=== PATIENT | male | born 1950 | race Caucasian/White ===

== ENCOUNTER 2024-09-29 09:45 | Outpatient (REF) | payer SELFPAY ==
--- NOTE | ~2024-09-29 | XR_ITS ---
EXAMINATION: XR PELVIS CLINICAL INFORMATION: Pain in unspecified hip M25.559. COMPARISON: None available. TECHNIQUE: AP view of the pelvis. FINDINGS: The right total hip arthroplasty components are in the usual position and alignment without evidence of loosening or fracture. Normal left hip. XR/XR pelvis 1-2V IMPRESSION: Right total hip arthroplasty without evidence of complication. Electronically signed by: Willian Naidu MD 11/06/2024 08:38 AM [place]
--- OUTSIDE RECORDS SUMMARY | 2024-10-01 14:11 | XMS_ITS | Continuity of Care Document ---
Author Organization [facility] Address [address] [place] [address] Phone Care Team Providers Care Sustainable Development Policy Analyst Name Role Phone Soto Riojas MD Unavailable Unavailabl e Allergies, Adverse Reactions, Alerts Substance Reaction Status Criticality No Known Allergies Active No Inform ation Medications Medication Instructions Dosage Effective Dates (start - stop) Status Comments ASPIRIN (unknown strength) Not Available - Active GABAPENTIN (unknown strength) Not Available - Active Tirosint 13 mcg capsule take 1 capsule by oral route every day 13 MCG - Active simvastatin 40 mg tablet take 1 tablet (40MG) by oral route every day in the evening 40 MG - Active Problems Condition Type Effective Dates (start - stop) Clini sal Status Comments No Known Problems Procedures Procedure Date Pawel HART Pt, Level III Comp Audiometry Threshold Eval Tympanometry Removal Impacted Cerumen Req Instrumenta tion HAILEY Estab Pt, Level III HAILEY, New Pt, Level III Diagnostic Fiberoptic Laryngoscopy Removal Impacted Cerumen Req Instrumenta tion Pawel HART Pt, Level III Diagnostic Fiberoptic Laryngoscopy Pawel HART Pt, Level III Consult, Level III / Office Diagnostic Fiberoptic Laryngoscopy Advance Directives Directive Yes / No Effective Date File Name No Information Encounters Encounter Description Practice Location Reason(s) For Visit Diagnoses Date Provider Providers Copied on Encounter [facility], [address], [place], [place], [id number] , [place] tel: [phone] [facility] No Information Apr-0 4 Shine Valera. [address], [facility] 201, [place], [place], [id number], [place]. tel:[phone] OV, Estab Pt, Level III [facility], [address], [place], [place], [id number] , [place] tel: [phone] [facility] Follow Up of Tinnitus (chief complaint) Pulsatile tinnitus, right ear Jan- 4 Shine Valera. [address], [address], [id number], [place]. tel:[phone] [facility], [address], [place], [place], [id number] , [place] tel: [phone] [facility] Sensorineural hearing loss, bilateral Dec- 4 Constantino Schulz. [address], [facility] [address], [place], [id number], [place]. tel:[phone] Referring Provider: Soto Riojas MD, [address], [address] . tel:[phone] OV, Estab Pt, Level III [facility], [address], [place], [place], [id number] , [place] tel: [phone] [facility] Tinnitus (chief complaint) Pulsatile tinnitus, bilateralImpacte d cerumen, right ear Fe- 4 Shine Valera. [address], [facility] 201, [place], [place], [id number], [place]. tel:[phone] [facility], [address], [place], [place], [address] , [place] tel: [phone] [facility] Obstructive sleep apnea (adult) (pediatric) 7 No Information [facility], [address], [place], [place], [address] , [place] tel: [phone] [facility] Obstructive sleep apnea (adult) (pediatric) 7 No Information OV, New Pt, Level III [facility], [address], [place], [place], [address] , [place] tel: [phone] [facility] Sleep apnea (chief complaint) Deviated nasal septumObstructiv e sleep apnea (adult) (pediatric)Snori ngImpacted cerumen, bilateral 6 No Information Referring Provider: Quan Redd, [address] [place] [address], [address]. tel:[phone] OV, Estab Pt, Level III [facility], [address], [place], [place], [address] , [place] tel: [phone] [facility] Snoring (chief complaint) Deviated Nasal Septum 2 No Information OV, Estab Pt, Level III [facility], [address], [place], [place], [id number] , [place] tel: [phone] [facility] Snoring (chief complaint) No Information 1 No Information Consult, Level III / Office [facility], [address], [place], [place], [address] , [place] tel: [phone] [facility] Snoring (chief complaint) Respiratory Abnorm NecOtosclerosis Nos Sep-0 1 No Information Referring Provider: Quan Redd, [address] [place] [address], [address]. tel:[phone] [facility], [address], [place], [place], [address] , tel: [phone] [facility] Otosclerosis Nos Jun- 5 William Gregory. [address], [address], [place], [place], [address], [place]. tel:[phone] Referring Provider: Narendra Duong, [address] [place] [address] [address], [place], [address]. tel:[phone] [facility], [address], [place], [place], [address] , tel: [phone] [facility] Otosclerosis NosMixed Hearing Loss 5 No Information Referring Provider: Narendra Duong, [address] [place] [address], [place], [address]. tel:[phone] Family History Family Member Type Diagnosis Age At Onset Mother Problem (finding) Alzheimer's Disease Mother Problem (finding) alzheimer's disease Sister Problem (finding) malignant neop lasm of breast in first degree relative Immunizations Vaccine Date Status Comments Pneumococcal vaccine unspecified complete d Note: patient only reported on this date, was given elsewhere ; Source: Source Unspecified Payers Payer name Insurance type Covered constitution party ID Authoriza tion(s) Medicare [facility] [id number] [facility] CI [id number] Social History Type Description Quantity Date Captured Comments Sex Male Smoking Status No Information Chief Complaint And Reason For Visit No Information Reason For Referral Reason For Referral No Information History Of Present Illness Encounter Date Complaint History Of Prese nt Illness Follow Up of Tinnitus The patien t presents with Follow Up of Tinnitus in the right ear that began 1 month ago and has lasted 1 Month. The symptoms are not changed, have been mild and occur constantly. The patient denies difficulty concentrating, dizziness, ear pain, extremity weakness, fullness in ear, headache, hearing loss, insomnia, vertigo, vision changes or volume fluctuation. Additional information: Pt states he has been in the hospital - CT SCAN is normal- had hearing test 01/02/24. Tinnitus The patient pres ents with Tinnitus in both ears that began 5 years ago and has lasted 5 Years. The symptoms are not changed, have been moderate and occur occasionally. The patient denies difficulty concentrating, dizziness, ear pain, extremity weakness, fullness in ear, headache, hearing loss, insomnia, vertigo, vision changes or volume fluctuation. Additional information: pt states has whooshing in the head, and sometimes whooshing turns to like an alarm sound x years all the time. Sleep apnea The symptoms are mild and worsening. These complaints are continuous. Relevant history: a BMI of 29.41. There is no history of atrial fibrillation. There are no associated symptoms. The patient denies headache, heartburn, nasal congestion, weight gain or wheezing. Additional information: worsening snoring, had hip replacement six weeks, ahi was 14.9. Functional Status Date Functional Assessmen t No Information Instructions Date Instruction Additional Infor mation No Information Assessments Type Assessment Date No Information Patient Care Teams Name Effective Dates (start - stop) Status Members No Information
--- OUTSIDE RECORDS SUMMARY | 2024-10-01 14:11 | XMS_ITS ---
Author Name [facility] Organization Unknown Results Test Name/Text Value Interpretation Date Range Source BKR REFLEX URINE CULTURE See Comment Normal [id number] [facility] Bacteria # Ur Auto Rare Normal [id number] - [facility] Hyaline Casts #/area UrnS 3/LPF Normal [id number] 0 - 3 [facility] WBC #/area UrnS Auto 4/HPF Normal [id number] 0 - 5 [facility] RBC #/area UrnS Auto 1/HPF Normal [id number] 0 - 2 [facility] Squamous #/area UrnS Auto 1/HPF Normal [id number] 0 - 5 [facility] Hgb Ur Ql Strip.auto Negative Normal [id number] - [facility] Prot Ur Strip.auto-mCnc 1+ Abnormal [id number] - [facility] Color Ur Auto Yellow Normal [id number] - [facility] Glucose Ur Strip.auto-mCnc Negative Normal [id number] - [facility] Bilirub Ur Ql Strip.auto Negative Normal [id number] - [facility] Nitrite Ur Ql Strip.auto Negative Normal [id number] - [facility] Ketones Ur Strip.auto-mCnc Negative Normal [id number] - [facility] Clarity Ur Refract.auto Clear Normal [id number] - [facility] WBC # Ur Strip Negative Normal [id number] - [facility] Urobilinogen Ur Strip-mCnc 2mg/dL Normal [id number] - [facility] pH Ur Strip.auto 6 Normal [id number] 5.5 - 7.5 [facility] Sp Gr Ur Refract.auto 1.026 Normal [id number] 1.005 - 1.03 [facility] Anion Gap3 SerPl-sCnc 4 Below low normal [id number] 5 - 18 [facility] Osmolality SerPl Calc 279mOsm/kg Normal [id number] 275 - 295 [facility] Creat SerPl-mCnc 1.02mg/dL Normal 0.5 - 1.3 [facility] Albumin/Glob SerPl 1.3 Normal [facility] Albumin SerPl BCG-mCnc 3.8g/dL Normal 3.4 - 5 [facility] ALT SerPl w/o P-5'-P-cCnc 35U/L Normal 12 - 78 [facility] Potassium SerPl-sCnc 4.4mmol/L Normal 3.5 - 5.1 [facility] Bilirub SerPl-mCnc 0.5mg/dL Normal 0 - 1 [facility] Calcium SerPl-mCnc 9mg/dL Normal 8.4 - 10 .3 [facility] AST/ALT SerPl-cRto 0.4 Normal - [facility] BUN SerPl-mCnc 17mg/dL Normal 8 - 25 [facility] ALP SerPl-cCnc 62U/L Normal 20 - 135 [facility] HCO3 SerPl-sCnc 28mmol/L Normal 21 - 32 [facility] Chloride SerPl-sCnc 107mmol/L Normal 95 - 11 5 [facility] BUN/Creat SerPl 16.7 Normal 8 - 25 [facility] AST SerPl w P-5'-P-cCnc 15U/L Normal 5 - 37 [facility] GFR/BSA.pred SerPlBld IUZ-ECP-HxBNno 60mL/min/1.73m2 Normal - [facility] Globulin Plas-mCnc 3g/dL Normal [id number] [facility] Prot SerPl-mCnc 6.8g/dL Normal 6.4 - 8.2 [facility] Sodium SerPl-sCnc 139mmol/L Normal 136 - 145 [facility] Glucose SerPl-mCnc 92mg/dL Normal 70 - 100 [facility] Lipase SerPl-cCnc 18U/L Normal [id number] 13 - 75 [facility] Monocytes # Bld Auto 0.41p4965/uL Normal [id number] 0 - 1 [facility] nRBC/100 WBC Bld Auto-Rto 0% Normal [id number] 0 - 1 [facility] Eosinophil # Bld Auto 0.47z4912/uL Normal [id number] 0 - 1 [facility] nRBC # Bld Auto 1z7390/uL Normal [id number] 0 - 1 [facility] Neutrophils # Bld Auto 7.46m7766/uL Normal [id number] 2 - 7.6 [facility] MCHC RBC Auto-mCnc 33.6g/dL Normal [id number] 31 - 36 [facility] Monocytes/leuk NFr Bld Auto 7.8% Normal [id number] 4 - 12 [facility] Basophils # Bld Auto 0.58o2507/uL Normal [id number] 0 - 1 [facility] WBC # Bld Auto 12.4d7764/uL Above high normal [id number] 4 - 11 [facility] Hct VFr Bld Auto 41.4% Normal [id number] 38.5 - 50 [facility] RDW RBC Auto-Rto 13.1% Normal [id number] 11 - 15 [facility] PMV Bld Auto 8.7fL Normal [id number] 8 - 12 [facility] Eosinophil/leuk NFr Bld Auto 1.8% Normal [id number] 0 - 5 [facility] MCH RBC Qn Auto 30.1pg Normal [id number] 27 - 33 [facility] Basophils/leuk NFr Bld Auto 0.6% Normal [id number] 0 - 1.4 [facility] Lymphocytes # Bld Auto 3.35b7725/uL Above high normal [id number] 0.6 - 3.7 [facility] RBC # Bld Auto 4.62M/uL Normal [id number] 4 - 6 [facility] Neutrophils/leuk NFr Bld Auto 58% Normal [id number] 39 - 72 [facility] Imm Granulocytes # Bld Auto 0.85p9956/uL Normal [id number] 0 - 0.3 [facility] Platelet # Bld Auto 191j4563/uL Normal [id number] 150 - 420 [facility] MCV RBC Auto 89.6fL Normal [id number] 80 - 100 [facility] Lymphocytes/leuk NFr Bld Auto 31.5% Normal [id number] 17 - 50 [facility] Imm Granulocytes/leuk NFr Bld Auto 0.3% Normal [id number] 0 - 1 [facility] Hgb Bld-mCnc 13.9g/dL Normal 13.2 - 17.1 [facility]
== END 2024-09-29 09:46 | disposition home or self-care (01) ==
LOC: HO.HOSX 09:45
PROVIDERS: Visit Provider Orthopaedic Surgery
DX: M25.559 Pain in unspecified hip (principal); M54.50 Low back pain, unspecified; Z96.641 Presence of right artificial hip joint
CPT/HCPCS: 72170; 99202

== ENCOUNTER 2024-09-29 10:14 | Outpatient (AMB) | payer MEDICARE, SELFPAY ==
--- NOTE | 2024-09-29 10:16 | A.OFFVIS_ITS ---
Vital Signs 09/29/24 10:27 Height 5 ft 10 in Weight 205 lb BMI 29.4 Intake Visit Reasons: New Pt - Right Hip Pain Intake Note: Anatoly is a 74 year old male who presents today as a new patient with complaints of Right Hip Pain. Patient reports that the right hip has been painful for about 1 year now. Hx of Right Hip Replacement about 8 years ago in [place]. Denies injury, he may overdo it. Pain is felt all the time, he takes Advil which is not helpful. He occasionally takes Oxycodone that was prescribed to his for a past surgery. Allergies No Known Allergies Allergy (Verified 09/29/24 10:28) HPI HPI New Pt - Right Hip Pain: Details: Anatoly is 10 years status post right hip replacement with a few months of right- sided hip and leg pain and back pain that has worsened to the point that he can not sleep. He is having a difficult time finding a comfortable position. He describes pain extending from of the lumbar spine down across the greater trochanter into the knee. He denies numbness and tingling although he does have bilateral lower extremity neuropathy. [facility] Surgical History (Updated 09/29/24 @ 10:31 by Jessie Oleary CMA) S/P TURP (status post transurethral resection of prostate) History of right hip replacement Social History (Updated 09/29/24 @ 10:31 by Jessie Oleary CMA) Current occupational status: retired Physical Exam Vital Signs: BMI result Body Mass Index 29.4 Extrem Other: No pain with hip range of motion Tenderness to palpation over the greater trochanter and into the abductor tendons although this is mild. Results Reviewed Results Reviewed: I personally reviewed relevant radiographs. Right FOZIA in expected post operative position with no hardware complications or evidence of loosening Assessment & Plan Assessment & Plan (1) Low back pain potentially associated with spinal stenosis: Code(s): M54.50 - Low back pain, unspecified Category: Medical Plan: Anatoly is having a acute flare of spinal stenosis and extremely uncomfortable. There is no evidence of intra-articular hip pathology and my suspicion for for primary abductor problem is low as his pain involves the back and extends into the knee. I have recommended a injection was spine. In the meantime we discussed some treatment options. I gave him some pain pills for a few days as he is extremely uncomfortable and I started him on a methylprednisolone Dosepak. I ordered a injection of the spine. He should bring his MRI with him and if the steroid Dosepak alleviates his pain he should cancel the appointment. I also described the risks of methylprednisolone with respect to his stomach and his occasional use of NSAIDs. I would discontinue the NSAIDs while he is on the prednisolone. Orders: Orders XR pelvis 1-2V Today M25.559 - Pain in unspecified hip Referrals Pain Management Referral M54.50 - Low back pain, unspecified Medications: New methylprednisolone (Medrol (Kike)) PO PER PKG DIR for 6 days 21 ea 0RF oxycodone Partial Fill upon patient request. 5 mg PO Q8H PRN 10 tabs 0RF pain Coding Level of Care Code New Pt Level 4 (13274) Diagnoses Low back pain potentially associated with spinal stenosis M54.50
[2024-09-29 10:27] VITALS: BMI 29.4
--- OUTSIDE RECORDS SUMMARY | 2024-10-01 14:25 | XMS_ITS | Continuity of Care Document ---
Author Organization [facility] Address [address] [place] [address] Phone Care Team Providers Care Manager Rehab Name Role Phone Soto Riojas MD Unavailable [...] [facility] [address], [place], [place], [id number] , [place] tel: [phone] [facility] No Information Apr-0 4 Shine Valera. [address], [facility] 201, [place], [place], [id number], [place]. tel:[phone] OV, Estab Pt, Level III [facility], [address], [place], [place], [address] , [place] tel: [phone] [facility] Follow Up of Tinnitus (chief complaint) Pulsatile tinnitus, right ear Jan- 4 Shine Valera. [address], [address], [id number], [place]. tel:[phone] [facility], [address], [place], [place], [address] , [place] tel: [phone] [facility] Sensorineural hearing loss, bilateral Dec- 4 Constantino Schulz. [address], [facility] [address], [place], [address], [place]. tel:[phone] Referring Provider: Soto Riojas MD, [address], [address] . tel:[phone] OV, Estab Pt, Level III [facility], [address], [place], [place], [address] , [place] tel: [phone] [facility] Tinnitus (chief complaint) Pulsatile tinnitus, bilateralImpacte d cerumen, right ear Fe- 4 Shine Valera. [address], [facility] 201, [place], [place], [address], [place]. tel:[phone] [facility], [address], [place], [place], [address] , [place] tel: [phone] [facility] Obstructive sleep apnea (adult) (pediatric) 7 No Information [facility], [address], [place], [place], [address] , [place] tel: [phone] [facility] Obstructive sleep apnea (adult) (pediatric) 7 No Information OV, New Pt, Level III [facility], [address], [place], [place], [address] , [place] tel: [phone] [facility] Sleep apnea (chief complaint) Deviated nasal septumObstructiv e sleep apnea (adult) (pediatric)Snori ngImpacted cerumen, bilateral 6 No Information Referring Provider: Quan Redd, [address] [place] [address], [address]. tel:[phone] OV, Estab Pt, Level III [facility], [address], [place], [place], [address] , [place] tel: [phone] [facility] Snoring (chief complaint) Deviated Nasal Septum 2 No Information OV, Estab Pt, Level III [facility], [address], [place], [place], [address] , [place] tel: [phone] [facility] Snoring (chief complaint) No Information 1 No Information Consult, Level III / Office [facility], [address], [place], [place], [address] , [place] tel: [phone] [facility] Snoring (chief complaint) Respiratory Abnorm NecOtosclerosis Nos Sep-0 1 No Information Referring Provider: Quan Redd, [address] [place] [address], [address]. tel:[phone] [facility], [address], [place], [place], [address] , tel: [phone] [facility] Otosclerosis Nos Jun- 5 William Gregory. [address], [address], [place], [place], [id number], [place]. tel:[phone] Referring Provider: Narendra Duong, [address] [place] [address], [place], [address]. tel:[phone] [facility], [address], [place], [place], [address] , tel: [phone] [facility] Otosclerosis NosMixed Hearing Loss 5 No Information Referring Provider: Narendra Duong, [address] [place] [address], [place], [address]. tel:[phone] Family History Family Member Type Diagnosis Age [...] Covered constitution party ID Authoriza tion(s) Medicare [facility] [id number] [facility] CI [id number] Social History Type Description Quantity Date Captured [...]
== END 2024-09-29 11:26 | disposition home or self-care (01) ==
PROVIDERS: Visit Provider Orthopaedic Surgery
DX: M54.50 Low back pain, unspecified (principal)
CPT/HCPCS: 99204

== ENCOUNTER 2024-10-24 10:24 | Outpatient (AMB) | payer MEDICARE, SELFPAY ==
--- NOTE | 2024-10-24 10:35 | A.OFFVIS_ITS ---
Vital Signs 10/24/24 10:37 Height 5 ft 10 in Weight 205 lb BMI 29.4 BP 165/72 H Blood Pressure Location Lt brachial Position Sitting Respiration 15 Pulse 54 Pulse Source Pulse Oximeter Pulse Oximetry (%) 98 Oxygen Delivery Method Room Air Intake Visit Reasons: Low Back Pain, Unspecified: (R) Lumbar Injections Allergies No Known Allergies Allergy (Verified 10/24/24 10:48) Medication List - Last Reconciled 10/24/24 by Fiona Velazquez LPN allopurinol 100 mg PO DAILY gabapentin 300 mg PO DAILY levothyroxine 75 mcg PO DAILY nebivolol 10 mg PO DAILY rosuvastatin 40 mg PO DAILY HPI HPI Low Back Pain, Unspecified: (R) Lumbar Injections: Details: 74-year-old male 10 years status post right hip replacement with a few months of right-sided hip and leg pain and back pain that has been progressively worsening. He is having a difficult time finding a comfortable position. He describes the pain mostly in his right greater trochanteric region surrounding the scar and in the right hip. Pain is worse at night. Rated 8/10 in intensity. During the day tends to be about 5/10 in intensity. He is unable to sleep normally or do his daily activities. He also recently experienced a bout of shingles with a rash in the same distribution so he wonders how much of his pain may be related to post herpetic neuralgia. But he is quite clear that symptoms in that region to predate the eruption of the rash by several months. He has been undergoing physical therapy as well for this. He is currently taking katelin apentin 1800 mg per day. He denies numbness and tingling although he does have bilateral lower extremity neuropathy. [facility] Surgical History (Updated 09/29/24 @ 10:31 by Jessie Oleary CMA) S/P TURP (status post transurethral resection of prostate) History of right hip replacement Social History (Updated 09/29/24 @ 10:31 by Jessie Oleary CMA) Current occupational status: retired Physical Exam Vital Signs: Last Vital Signs Pulse 54 10/24/24 10:37 Resp 15 10/24/24 10:37 BP 165/72 H 10/24/24 10:37 Pulse Ox 98 10/24/24 10:37 Oxygen Delivery Method Room Air 10/24/24 10:37 BMI result Body Mass Index 29.4 Results Reviewed Results Reviewed: MRI of the lumbar spine showed moderate to severe canal stenosis at L4-5 with grade 1 anterolisthesis and encroachment of the right subarticular recess leading to moderate right foraminal stenosis. Assessment & Plan Assessment & Plan (1) Greater trochanteric pain syndrome: Code(s): M25.559 - Pain in unspecified hip Category: Medical Plan 74-year-old male presenting with 10 month history of right hip and lateral thigh pain. Pertinent history is notable for prior right-sided hip replacement with an associated scar overlying the right greater trochanter, lumbar spinal stenosis with moderate to severe stenosis of the right L4-5 level, recent shingles with eruption and associated herpetic neuralgia also in the same vicinity. We discussed diagnostic injection as a 1st step since it would be preferable to delay a corticosteroid injection in the same vicinity as a recent shingles infection. If the diagnostic injection is helpful, we can consider corticosteroid injections to the right greater trochanter region in the future. Patient is in agreement with the plan. He also requested a temporary bridging script for his oxycodone since he has not heard back from his primary care after placing a request with that office a few days ago. I provided him with a 1 time short script until he is able to reconnect with his primary care provider. Medications: New oxycodone Partial Fill upon patient request. 5 mg PO BID PRN 14 tabs 0RF pain Coding Level of Care Code New Pt Level 4 (11925) Diagnoses Greater trochanteric pain syndrome M25.559
[2024-10-24 10:37] VITALS: BP 165/72; PULSE 54; RESP 15; O2SAT 98; BMI 29.4
== END 2024-10-24 11:05 | disposition home or self-care (01) ==
PROVIDERS: Referring Provider Orthopaedic Surgery; Visit Provider Internal Medicine
DX: M25.559 Pain in unspecified hip (principal)
CPT/HCPCS: 99204

== ENCOUNTER → 2024-10-24 10:24 | Outpatient (BNVA) | payer MEDICARE, SELFPAY | PROVIDERS: Referring Provider Orthopaedic Surgery; Visit Provider Internal Medicine | DX: M25.551 Pain in right hip (principal) | CPT/HCPCS: 99202 ==

== ENCOUNTER 2024-11-12 10:16 | Outpatient (AMB) | payer MEDICARE, SELFPAY ==
--- NOTE | 2024-11-12 10:17 | A.OFFVIS_ITS ---
Vital Signs 11/12/24 10:20 Height 5 ft 10 in Weight 203 lb BMI 29.1 BP 141/65 H Blood Pressure Location Lt brachial Position Sitting Respiration 16 Pulse 56 Pulse Source Pulse Oximeter Pulse Oximetry (%) 98 Oxygen Delivery Method Room Air Intake Visit Reasons: Right Hip Diagnostic Injection Allergies No Known Allergies Allergy (Verified 11/21/24 10:12) Medication List - Last Reconciled 11/12/24 by Fiona Velazquez LPN allopurinol 100 mg PO DAILY gabapentin 300 mg PO DAILY levothyroxine 75 mcg PO DAILY nebivolol 10 mg PO DAILY rosuvastatin 40 mg PO DAILY HPI HPI Right Hip Diagnostic Injection: Details: History of Present Illness The patient is a 74-year-old male presenting with right hip pain. The pain has persisted for the past year and was exacerbated following a diagnosis of shingles about seven weeks ago. During his shingles outbreak, he developed a rash and has since experienced numbness in his leg, suspected to involve the lumbar plexus. The patient has an artificial hip and has reported a change in the character of the pain over time. The pain relief is partially achieved thr ough localized pressure and massage therapy. He has been trying to manage the pain with up to six 500 mg Tylenol tablets per day. Notably, the pain intensified post-shingles. The massage therapist noted that the pain seems more muscular compared to before. Onset of these symptoms coincided with his return to playing tennis, though he reports limitations including inability to run and dizziness. Previous medications included oxycodone, which he has since discontinued. During this visit, diagnostic efforts revealed calcification in the distal right gluteus medius tendon. Pain Description - Pain Location: Right hip, specific focus on distal gluteus medius region - Pain Quality: Dull achy pain with some numbness - Aggravating Factors: Physical activity such as playing tennis, running - Relieving Factors: Localized pressure and massage therapy - Functional Impact: Limits ability to play tennis and causes dizziness Physical Exam - Musculoskeletal- Ultrasound examination revealed calcification in the distal right gluteus medius tendon. Results - Diagnostic Imaging: Ultrasound examination confirmed calcification of the distal right gluteus medius tendon. Pain Management - Affect: Pain impacts functional activities like playing tennis; patient mentioned occasional dizziness. - Analgesia: Previously used oxycodone, currently using Tylenol up to six tablets daily. - Adverse Effects: None reported from current pain regimen. - Activities of Daily Living: Unable to run; dizziness while playing tennis affects activities. - Aberrant Drug Related Behaviors: None reported; patient previously used prescribed oxycodone. [facility] Surgical History (Updated 09/29/24 @ 10:31 by Jessie Oleary CMA) S/P TURP (status post transurethral resection of prostate) History of right hip replacement Social History (Updated 09/29/24 @ 10:31 by Jessie Oleary CMA) Current occupational status: retired Physical Exam Vital Signs: Last Vital Signs Pulse 56 11/12/24 10:20 Resp 16 11/12/24 10:20 BP 141/65 H 11/12/24 10:20 Pulse Ox 98 11/12/24 10:20 Oxygen Delivery Method Room Air 11/12/24 10:20 BMI result Body Mass Index 29.1 Office Procedures AMB Joint Injection/Aspiration Joint Injection/Aspiration Details: Right Gluteus medius tendon USG injection After informed written consent was obtained, the patient was placed in the lateral position. The skin was prepped with Chloroprep, and draped in a sterile fashion. With the use of US the greater trochanter and GM tendon was identified. A 21-gauge 80 mm needle was then advanced toward the calcified tendon. Once in position, and after negative aspiration, 0.5% ropivcaine (8 mL total). There was no evidence of paresthesias throughout needle placement. The stylet was replaced and then the needle was withdrawn. The patient tolerated the procedure well and there was no evidence of procedural complications. The patient was observed in the procedure room for 20 minutes, vitals were stable, and discharged in stable condition. Coding Details: US image saved to patients record Additional procedure code (CPT) needed Assessment & Plan Assessment & Plan (1) Greater trochanteric pain syndrome: Code(s): M25.559 - Pain in unspecified hip Category: Medical Plan Plan - Assess response to today's ultrasound-guided injection in the right gluteus medius tendon with ropivacaine. - Consider PRP injection for calcification at the right gluteus medius tendon if positive diagnostic response observed. - Continue to monitor postherpetic neuralgia symptoms and evaluate progression. - Advise against use of NSAIDs for two weeks pre- and post-injection. - Providing oxycodone only if required while managing with Tylenol for pain control. Patient was informed and verbally consented to the use of an ambient scribe for clinic note documentation during this visit. Discussion Notes I discussed the patient's symptoms of right hip pain and numbness and attributed them to right gluteus medius tendinopathy with calcification and postherpetic neuralgia. We discussed the procedure performed today, which was an ultrasound- guided injection of ropivacaine into the distal gluteus medius tendon, to assess whether this approach provides diagnostic relief. If successful, a PRP injection might follow, though it is not covered by insurance. I explained PRP involves using the patient's platelets to aid healing. The patient showed interest in such options despite potential costs. NSAIDs need to be ceased two weeks before and after injections to ensure optimal outcomes. I advised on monitoring the effectiveness of today's injection and to report through the patient portal. Patient Instructions - Avoid taking NSAIDs for the next two weeks. - Continue current Tylenol regimen for pain management. - Monitor for any changes or relief in pain and report back through the patient portal. - Consider PRP injection in the future if positive effects noticed from today's intervention. - Maintain regular multivitamin use to support platelet quality. - Follow up if any new or worsening symptoms occur. Coding Level of Care Code Est Pt Level 3 (48433) Diagnoses Greater trochanteric pain syndrome M25.559
[2024-11-12 10:20] VITALS: BP 141/65; PULSE 56; RESP 16; O2SAT 98; BMI 29.1
== END 2024-11-12 10:57 | disposition home or self-care (01) ==
PROVIDERS: PCP Physician Assistant Medical; Visit Provider Internal Medicine
DX: M25.551 Pain in right hip (principal)
CPT/HCPCS: 20610; 99213

== ENCOUNTER → 2024-11-12 10:16 | Outpatient (BNVA) | payer MEDICARE, SELFPAY | PROVIDERS: PCP Physician Assistant Medical; Visit Provider Internal Medicine | DX: M25.551 Pain in right hip (principal) | CPT/HCPCS: 20610; 99212 ==

== ENCOUNTER 2024-11-21 10:09 | Outpatient (AMB) | payer MEDICARE, SELFPAY ==
--- NOTE | 2024-11-21 10:10 | MHC.OFFVIS ---
Vital Signs 11/21/24 10:11 Height 5 ft 10 in Weight 203 lb BMI 29.1 BP 94/54 L Blood Pressure Location Lt brachial Position Sitting Respiration 16 Pulse 74 Pulse Source Pulse Oximeter Pulse Oximetry (%) 97 Oxygen Delivery Method Room Air Intake Visit Reasons: Follow Up After Inj. Fiber Optics Supervisor Required: No Dental Laboratory Supervisor: Dental Laboratory Supervisor Present Accompanied by: Van Maria Allergies No Known Allergies Allergy (Verified 11/21/24 10:12) Medication List - Last Reconciled 11/21/24 by Fiona Velazquez LPN allopurinol 100 mg PO DAILY gabapentin 300 mg PO DAILY levothyroxine 75 mcg PO DAILY nebivolol 10 mg PO DAILY rosuvastatin 40 mg PO DAILY HPI HPI Follow Up After Inj.: Details: History of Present Illness The patient is a 74 year old male presenting with gluteus medius tendon pain. He initially had a diagnostic injection for this condition but unfortunately did not experience relief. The patient is being seen today for a repeat injection at a different site in hopes of achieving pain relief. The pain has persisted despite prior intervention, prompting the need for reassessment and further intervention. Pain Description - Pain location: Right gluteus medius tendon - Onset: Persistent since previous intervention - Relief: No relief from the initial injection - Plan: Repeat injection at a more proximal site as detailed in the visit plan Physical Exam Results Pain Management - Analgesia: No relief from the first injection; repeat injection planned today [facility] Surgical History (Updated 09/29/24 @ 10:31 by Jessie Oleary CMA) S/P TURP (status post transurethral resection of prostate) History of right hip replacement Social History (Updated 09/29/24 @ 10:31 by Jessie Oleary CMA) Current occupational status: retired Physical Exam Vital Signs: Last Vital Signs Pulse 74 11/21/24 10:11 Resp 16 11/21/24 10:11 BP 94/54 L 11/21/24 10:11 Pulse Ox 97 11/21/24 10:11 Oxygen Delivery Method Room Air 11/21/24 10:11 BMI result Body Mass Index 29.1 Office Procedures AMB Joint Injection/Aspiration Joint Injection/Aspiration Details: Right Gluteus medius tendon USG injection After informed written consent was obtained, the patient was placed in the supine position. The skin was prepped with Chloroprep, and draped in a sterile fashion. With the use of US the greater trochanter and GM tendon was identified. A 21-gauge 80 mm needle was then advanced toward the proximal portion of the tendon. Once in position, and after negative aspiration, 0.5% ropivcaine (8 mL total). There was no evidence of paresthesias throughout needle placement. The stylet was replaced and then the needle was withdrawn. The patient tolerated the procedure well and there was no evidence of procedural complications. The patient was observed in the procedure room for 20 minutes, vitals were stable, and discharged in stable condition. Coding Additional procedure code (CPT) needed Assessment & Plan Assessment & Plan (1) Greater trochanteric pain syndrome: Code(s): M25.559 - Pain in unspecified hip Category: Medical Plan Plan - Administered a repeat right gluteus medius tendon injection at a more proximal site. - Monitor the patient's response to today's intervention. Patient was informed and verbally consented to the use of an ambient scribe for clinic note documentation during this visit. Discussion Notes I discussed with the patient the lack of relief from the previous gluteus medius tendon injection and the plan to administer a repeat injection at a different, more proximal site. I emphasized the importance of evaluating the type of response that is obtained from today's intervention. The patient was informed that further care would be directed based on the outcome of this procedure. Patient Instructions - Monitor the response to today's injection. - Report any immediate adverse effects after the injection. - Follow up as directed to discuss ongoing management based on the response to treatment. - Seek medical attention sooner if severe pain or unusual symptoms occur. Coding Level of Care Code Est Pt Level 3 (33369) Diagnoses Greater trochanteric pain syndrome M25.559
[2024-11-21 10:11] VITALS: BP 94/54; PULSE 74; RESP 16; O2SAT 97; BMI 29.1
--- OUTSIDE RECORDS SUMMARY | 2024-11-21 10:49 | XMS_ITS | Data Portability ---
Author Organization [facility] Address [address] [place] [id number] Assessment Encounter Date Assessment Date Assessment LastModified by Organization Details LastModified Time 08/28/2024 08/28/2024 worsening abdominal pain urine dip clear + tenderness to RLQ advised to go to ER for rule out appendicitis patient agreed with plan Patient was given the opportunity to ask questions. All questions answered and patient indicated understanding of all discussed. [email or web address] Not available 08/28/2024 16:31:31 Plan of Treatment Reminders Order Date Submit Date Provider Last Modified By Organization Details Last Modified Time Details Appointments None record ed. Lab None record ed. Referral None record ed. Procedures None record ed. Surgeries None record ed. Imaging None record ed. Medication Orders None record ed. Patient TargetsNo targets recorded. Patient Instructions Encounter Date Encounter Id Patient Instructions Last Modified By Organization Details Last Modified Time 08/28/2024 [id number] Worsening lower abdominal pain + tenderness to right lower abdomen 6/10 constant pain to RLQ and back urine test normal today advise to go to Emergency Room for imaging CT scan and blood work ruleout appendicitis [email or web address] Not available 08/28/2024 16:24:21 Reason for Referral None Reported. Medical Equipment None Reported. Allergies No known drug allergies Medications Name Sig Start Date Stop Date Status Note LastModified by Organization Details LastModified Time Synthroid active Not Available Not Lindy ilable Not Available allopurinol active Not Available Not A vailable Not Available gabapentin active Not Available Not Av ailable Not Available ezetimibe active Not Available Not Lindy ilable Not Available rosuvastatin active Not Available Not Available Not Available nebivolol active Not Available Not Lindy ilable Not Available Vitals Date Recorded Respiratory rate Provider Name a nd Address Organization Details Last Updated DateTime 08/28/2024 16 /min Erik Au [facility] 08/28/2024 16:04:19 Date Recorded Heart rate Provider Name an d Address Organization Details Last Updated DateTime 08/28/2024 60 /min [facility] 16:04:29 Date Recorded Oxygen saturation Oxygen saturation in Arterial blood by Pulse oximetry Provider Name and Address Organization Details Last Updated DateTime 08/28/2024 97 % 97 % Erik galeano [facility] 08/28/2024 16:04:27 Date Recorded Systolic blood pressure Diastolic blood pressure Provider Name and Address Organization Details Last Updated DateTime 08/28/2024 122 mm[Hg] 72 mm[Hg] Erik galeano [facility] 08/28/2024 16:05:30 Social History None recorded. Functional Status None recorded. Mental Status None recorded. Family History Nothing Reported. Medical History No medical history recorded. Past Encounters Encounter ID Performer Location Encounter Start Date Encounter Closed Date Diagnosis/Indication Diagnosis SNOMED-CT Code Diagnosis ICD10 Code Diagnosis Note [id number] [facility] [address] [id number] 08/28/2024 15:54:10 08/28/2024 16:32:20 Right lower quadrant pain 983269501 R10.31 Health Concerns Section Related Observation LastModified by Organization Detai ls LastModified Time None Recorded Concern Status LastModified by Organization Details LastModified Time None Recorded Advance Directives Directive None Recorded Payers Encounter Date Sequence Insurance Name Policy Number Policy [place] Covered Member ID [place] Member ID Guarantor Name 08/28/2024 1 MEDICARE-[facility] (MEDICARE) Colt Ritchie [id number] Colt Ritchie 08/28/2024 2 [facility] (MEDICARE SUPPLEMENT) Colt Ritchie [id number] Colt Ritchie Notes Date Note Type Note Provider Name and Address Organization Details Recorded Time 08/28/2024 text/html 74 year old male here with worsening back pain and abdominal pain that started a week agohe had it for three days that went away on its own but he was out for 3 days.no feverfeels upset stomachnormal bm dailyno diarrheaunsure if eating made it worse but believes it may haveno vomitingpain is constant 03/31 Right abdomen, feels constant and sharp worse when he walks Celia Camarillo, DO [address] [facility],[address], [place], [address], [facility] 08/28/2024 16:32:12
--- OUTSIDE RECORDS SUMMARY | 2024-11-21 10:49 | XMS_ITS | Clinical Summary ---
Author Organization [address] Address [address] [place] [address] Phone Care Team Providers Care Worm Sorter Name Role Phone Jeannette Weinstein MD Primary Care Provider Allergies No known active allergies Medications No known medications Encounters Date Type Department Care Team Description 08/28/2024 4:52 PM EST - 08/28/2024 8:52 PM EST Emergency [facility] Emergency Dept [address] [place] [address] Soto Noe MD Acute right-sided low back pain without sciatica (Primary Dx) Discharge Disposition: Home or Self Care from Last 3 Months Social History Tobacco Use Types Packs/Day Years Used Date Smoking Tobacco: Unknown Tobacco Cessation:Counseling Given: Not Answered Interpersonal Safety Answer Date Record ed Is there anyone in your life that is hurting or threatening you in anyway? no 08/28/2024 Physical Indicators of Abuse No evidence of phys ical abuse 08/28/2024 Sex and Gender Information Value Date Recorded Sex Assigned at Not on file Legal Sex Male 4:42 PM EST Gender Identity Not on file Sexual Orientation Not on file Last Filed Vital Signs Vital Sign Reading Time Taken Comments Blood Pressure 128/70 08/28/2024 7:40 PM EST Pulse 51 08/28/2024 7:40 PM EST Temperature 36.8 ??C (98.2 ??F) 08/28/2024 7:40 PM ES T Respiratory Rate 20 08/28/2024 7:40 PM EST Oxygen Saturation 98% 08/28/2024 7:40 PM EST Inhaled Oxygen Concentration - - Weight 94.4 kg (208 lb 1.8 oz) 08/28/2024 4:51 P M EST Height - - Body Mass Index - - Plan of Treatment Health Maintenance Due Date Last Done Comments HIV screening 01/24/1964 Hepatitis C screening 1969 Tetanus adult (Td q 10,TDAP once) 1971 Lipid disorder screening 1991 Colon cancer screening, Colonoscopy 01/24/1996 Shingles vaccine (Shingrix) (1 of 2 - Shingrix (RZV) 2 Dose Standard Series) 2001 Influenza vaccine 05/22/2024 08/07/2023, 08/10/2022, 08/02/2021 Covid-19 vaccine series ( season) 2024 06/28/2022, 12/23/2020 RSV Discussion (1 - 1-dose 7 5+ series) 2026 Diabetes screening 08/28/2027 08/28/2024 Pneumo Vaccine 65+ Completed 04/16/2019, 03/13/2017 Meningococcal Vaccine Aged Out No rodrigo kyler eligible based on patient's age to complete this topic Procedures Procedure Name Priority Date/Time Associated Diagnosis Comments CT ABDOMEN PELVIS WO IV CONTRAST Routine 08/28/2024 6:54 PM EST URINE MICROSCOPIC ( GH LMW YH) STAT 08/28/2024 6:10 PM EST URINALYSIS WITH CULTURE REFLEX ( LMW YH) STAT 08/28/2024 6:10 PM EST UA REFLEX CULTURE STAT 08/28/2024 6:1 0 PM EST URINALYSIS WITH CULTURE REFLEX STAT 08/28/2024 6:10 PM EST EKG STAT 08/28/2024 5:16 PM EST COMPREHENSIVE METABOLIC PANEL STAT 08/28/2024 5:06 PM EST CBC AND DIFFERENTIAL STAT 08/28/2024 5:06 PM EST COMPREHENSIVE METABOLIC PANEL STAT 08/28/2024 5:06 PM EST CBC WITH AUTO DIFFERENTIAL STAT 08/28/2024 5:06 PM EST LIPASE STAT 08/28/2024 5:06 PM EST CARDIAC EKG RESULT SCAN 08/28/2024 12:00 AM EST from Last 3 Months Results * CT Abdomen Pelvis wo IV Contrast (08/28/2024 6:54 PM EST) Anatomical Region Laterality Modality Abdomen, Pelvis, Ortho Pelvi s, Abdomen and Pelvis, RCC Abdomen/Pelvis Computed Tomography 08/28/2024 7:30 PM EST Impressions 08/28/2024 7:45 PM EST 1. No urinary calculus or hydronephrosis is demonstrated. 2. There is no CT evidence of appendicitis. 3. Coronary arterial calcification is demonstrated, fatty replacement of the liver and pancreas are seen, and the prostate gland is enlarged. This CT scan was performed utilizing techniques to reduce radiation dose including Automated Exposure Control, mA / kV adjustment for patient size, and / or iterative reconstruction. Reported and signed by: ??Eduardo Camilo MD Narrative 08/28/2024 7:45 PM EST History: 74-year-old male with right flank and lower quadrant pain. CT abdomen noncontrast 08/28/2024: No previous study is available for comparison. The lung bases demonstrate no nodule or consolidation. No pleural or pericardial effusion is seen. There is evidence of linear scarring at the lateral aspect of the left lung base. Coronary arterial calcification is demonstrated. A small hiatal hernia is seen. No urinary calculus or hydronephrosis is demonstrated. Findings are consistent with diffuse fatty hepatic infiltration. No intrahepatic mass or biliary ductal dilatation is seen. The gallbladder and spleen are unremarkable in appearance. Diffuse fatty atrophic changes of the pancreas are demonstrated. The abdominal aorta is normal in caliber. No retroperitoneal adenopathy, ascites, or dilated loops of intestine are demonstrated in the upper abdomen by CT. No colonic mural thickening is demonstrated. CT pelvis noncontrast: The ileocecal junction is visualized on image 81 of series 3. A noninflamed appendix is demonstrated in the right lower quadrant on images 94 through 103. Beam hardening artifact from a right hip arthroplasty limits evaluation of the pelvis despite metal artifact reduction technology. The prostate gland is enlarged at 5.2 cm diameter. The seminal vesicles and bladder are unremarkable in appearance. A right external iliac lymph node on image 130 of 9-10 mm short axis dimension is at the upper limit of normal in size. No definite retroperitoneal adenopathy, ascites, or dilated loops of intestine are demonstrated in the pelvis by CT. No focal osseous lesion is demonstrated. Procedure Note Eduardo Camilo MD - 08/28/2024 History: 74-year-old male with right flank and lower quadrant pain. CT abdomen noncontrast 08/28/2024: No previous study is available forcomparison. The lung bases demonstrate no nodule or consolidation. No pleural orpericardial effusion is seen. There is evidence of linear scarring at thelateral aspect of the left lung base. Coronary arterial calcification isdemonstrated. A small hiatal hernia is seen. No urinary calculus or hydronephrosis is demonstrated. Findings areconsistent with diffuse fatty hepatic infiltration. No intrahepatic massor biliary ductal dilatation is seen. The gallbladder and spleen are unremarkable in appearance. Diffuse fattyatrophic changes of the pancreas are demonstrated. The abdominal aorta isnormal in caliber. No retroperitoneal adenopathy, ascites, or dilated loops of intestine aredemonstrated in the upper abdomen by CT. No colonic mural thickening isdemonstrated. CT pelvis noncontrast: The ileocecal junction is visualized on image 81 ofseries 3. A noninflamed appendix is demonstrated in the right lowerquadrant on images 94 through 103. Beam hardening artifact from a right hip arthroplasty limits evaluation ofthe pelvis despite metal artifact reduction technology. The prostate glandis enlarged at 5.2 cm diameter. The seminal vesicles and bladder areunremarkable in appearance. A right external iliac lymph node on image 130 of 9-10 mm short axisdimension is at the upper limit of normal in size. No definiteretroperitoneal adenopathy, ascites, or dilated loops of intestine aredemonstrated in the pelvis by CT. No focal osseous lesion is demonstrated. IMPRESSION: 1. No urinary calculus or hydronephrosis is demonstrated. 2. There is no CT evidence of appendicitis. 3. Coronary arterial calcification is demonstrated, fatty replacement ofthe liver and pancreas are seen, and the prostate gland is enlarged. This CT scan was performed utilizing techniques to reduce radiation doseincluding Automated Exposure Control, mA / kV adjustment for patient size,and / or iterative reconstruction. Reported and signed by: Eduardo Camilo MD us Soto Noe MD IMG CT ORDERABLES Final Resu lt * (ABNORMAL) Urinalysis with culture reflex ([facility]) (08/28/2024 6:10 PM EST) Clarity, UA Clear Clear 08/28/2024 6:20 PM [facility] DEPARTMENT OF PATHOLOGY Color, UA Yellow Yellow, Colorless 08/28/2024 6:20 PM [facility] DEPARTMENT OF PATHOLOGY Specific [place], UA 1.026 1.005 - 1.030 08/28/2024 6:20 PM [facility] DEPARTMENT OF PATHOLOGY pH, UA 6.0 5.5 - 7.5 08/28/2024 6:20 PM [facility] DEPARTMENT OF PATHOLOGY Protein, UA 1+(A) Negative, Trace 08/28/2024 6:20 PM [facility] DEPARTMENT OF PATHOLOGY Glucose, UA Negative Negative 08/28/2024 6:20 PM [facility] DEPARTMENT OF PATHOLOGY Ketones, UA Negative Negative 08/28/2024 6:20 PM [facility] DEPARTMENT OF PATHOLOGY Blood, UA Negative Negative 08/28/2024 6:20 PM [facility] DEPARTMENT OF PATHOLOGY Bilirubin, UA Negative Negative 08/28/2024 6:20 PM [facility] DEPARTMENT OF PATHOLOGY Leukocytes, UA Negative Negative 08/28/2024 6:20 PM [facility] DEPARTMENT OF PATHOLOGY Nitrite, UA Negative Negative 08/28/2024 6:20 PM [facility] DEPARTMENT OF PATHOLOGY Urobilinogen, UA <2.0 <=2.0 mg/dL 08/28/2024 6:20 PM [facility] DEPARTMENT OF PATHOLOGY Urine Collection / Unknown 08/28/2024 6:10 PM EST 08/28/2024 6:16 PM EST us Soto Noe MD URINE ORDERABLES Final Resul t [facility] DEPARTMENT OF PATHOLOGY [address] [place] [address] * UA reflex to culture (08/28/2024 6:10 PM EST) Reflex Urine Culture See Comment 08/28/2024 10:00 PM [facility] DEPARTMENT OF PATHOLOGY Urine Collection / Unknown 08/28/2024 6:10 PM EST 08/28/2024 6:16 PM EST Narrative [facility] DEPARTMENT OF LABORATORY MEDICINE - 08/28/2024 10:00 PM EST Urine culture will be reflexed if indicated by urinalysis results. ??Please check microbiology results for urine culture. us Soto Noe MD URINE ORDERABLES Final Resul t Performing Organization Address City/[facility]/ZIP Co de Phone Number [facility] DEPARTMENT OF LABORATORY MEDICINE [address] [place] [address] [facility] DEPARTMENT OF PATHOLOGY [address] [place] [address] * Urine microscopic ([facility]) (08/28/2024 6:10 PM EST) RBC/HPF, UA 1 0 - 2 /HPF 08/28/2024 6:39 PM [facility] DEPARTMENT OF PATHOLOGY WBC/HPF, UA 4 0 - 5 /HPF 08/28/2024 6:39 PM [facility] DEPARTMENT OF PATHOLOGY Bacteria, UA Rare None-Rare /HPF 08/28/2024 6:39 PM [facility] DEPARTMENT OF PATHOLOGY Urine Squamous Epithelial Cells, UA 1 0 - 5 /HPF 08/28/2024 6:39 PM [facility] DEPARTMENT OF PATHOLOGY Hyaline Casts, UA 3 0 - 3 /LPF 08/28/2024 6:39 PM [facility] DEPARTMENT OF PATHOLOGY Urine Collection / Unknown 08/28/2024 6:10 PM EST 08/28/2024 6:16 PM EST Soto Noe MD URINE ORDERABLES Final Resul t [facility] DEPARTMENT OF PATHOLOGY [address] [place] [address], [place] [phone] * EKG (if patient >40 years old) (08/28/2024 5:16 PM EST) Heart Rate 53 bpm [facility] EKG DEPARTMENT QRS Interval 144 ms [facility] EKG DEPARTMENT QT Interval [address] [facility] EKG DEPARTMENT QTC Interval 437 ms [facility] EKG DEPARTMENT P [place] 36 deg [facility] EKG DEPARTMENT QRS [place] -67 deg [facility] EKG DEPARTMENT T Wave [place] -[address] [facility] EKG DEPARTMENT P-R Interval 156 msec [facility] EKG DEPARTMENT SEVERITY Abnormal ECG severity [facility] EKG DEPARTMENT Comment::Sinus bradycardia:L eft axis deviation:Right bundle branch block:No prior ECG available for comparison.:Electronically Signed On 08-29-2024 9:24:21 EST by KORTNEY JIMENEZ MD 08/28/2024 5:16 PM EST Soto Noe MD ECG ORDERABLES Final Result Performing Organization Address City/[facility]/ZIP Co de Phone Number [facility] EKG DEPARTMENT * (ABNORMAL) Comprehensive metabolic panel (08/28/2024 5:06 PM EST) Sodium 139 136 - 145 mmol/L 08/28/2024 5:33 PM [facility] DEPARTMENT OF PATHOLOGY Potassium 4.4 3.5 - 5.1 mmol/L 08/28/2024 5:33 PM [facility] DEPARTMENT OF PATHOLOGY Chloride 107 95 - 115 mmol/L 08/28/2024 5:33 PM [facility] DEPARTMENT OF PATHOLOGY CO2 28 21 - 32 mmol/L 08/28/2024 5:33 PM [facility] DEPARTMENT OF PATHOLOGY Anion Gap 4(L) 5 - 18 08/28/2024 5:33 PM [facility] DEPARTMENT OF PATHOLOGY Glucose 92 70 - 100 mg/dL 08/28/2024 5:33 PM [facility] DEPARTMENT OF PATHOLOGY BUN 17 8 - 25 mg/dL 08/28/2024 5:33 PM [facility] DEPARTMENT OF PATHOLOGY Creatinine 1.02 0.50 - 1.30 mg/dL 08/28/2024 5:33 PM [facility] DEPARTMENT OF PATHOLOGY Calcium 9.0 8.4 - 10.3 mg/dL 08/28/2024 5:33 PM [facility] DEPARTMENT OF PATHOLOGY BUN/Creatinine Ratio 16.7 8.0 - 25.0 08/28/2024 5:33 PM [facility] DEPARTMENT OF PATHOLOGY Total Protein 6.8 6.4 - 8.2 g/dL 024 5:33 PM [facility] DEPARTMENT OF PATHOLOGY Albumin 3.8 3.4 - 5.0 g/dL 08/28/2024 5:33 PM [facility] DEPARTMENT OF PATHOLOGY Total Bilirubin 0.5 0.0 - 1.0 mg/dL 08/28/2024 5:33 PM [facility] DEPARTMENT OF PATHOLOGY Comment:Use of this assay is not recommended for patients undergoing treatment with Eltrombopag due to the potential for falsely elevated results. Alkaline Phosphatase 62 20 - 135 U/L 08/28/2024 5:33 PM [facility] DEPARTMENT OF PATHOLOGY Alanine Aminotransferase (ALT) 35 12 - 78 U/L 08/28/2024 5:33 PM [facility] DEPARTMENT OF PATHOLOGY Aspartate Aminotransferase (AST) 15 5 - 37 U/L 08/28/2024 5:33 PM [facility] DEPARTMENT OF PATHOLOGY Globulin 3.0 g/dL 08/28/2024 5:33 PM [facility] DEPARTMENT OF PATHOLOGY A/G Ratio 1.3 08/28/2024 5:33 PM [facility] DEPARTMENT OF PATHOLOGY AST/ALT Ratio 0.4 Reference Range Not Established 08/28/2024 5:33 PM [facility] DEPARTMENT OF PATHOLOGY Osmolality Calculation 279 275 - 295 mOsm/kg 08/28/2024 5:33 PM [facility] DEPARTMENT OF PATHOLOGY eGFR (Creatinine) >60 >=60 mL/min/1.73m2 08/28/2024 5:33 PM [facility] DEPARTMENT OF PATHOLOGY Comment: [facility] utilizes CKD-EPI Creatinine 2020 to report eGFR. Values < 60 mL/min/1.73 m2 may indicate CKD if present for more than three months AND creatinine is at steady state. The eGFR provides a rough estimate of kidney function. For further guidance, please refer to the CKD: [employer] Professor Signature pathway. Blood Venipuncture / Unknown 08/28/2024 5:06 PM EST 08/28/2024 5:11 PM EST us Soto Noe MD LAB BLOOD ORDERABLES Final R esult [facility] DEPARTMENT OF PATHOLOGY [address] [place] [address] * (ABNORMAL) CBC auto differential (08/28/2024 5:06 PM EST) WBC 12.4(H) 4.0 - 11.0 x1000/??L 08/28/2024 5:20 PM [facility] DEPARTMENT OF PATHOLOGY RBC 4.62 4.00 - 6.00 M/??L 08/28/2024 5:20 PM [facility] DEPARTMENT OF PATHOLOGY Hemoglobin 13.9 13.2 - 17.1 g/dL 08/28/2024 5:20 PM [facility] DEPARTMENT OF PATHOLOGY Hematocrit 41.40 38.50 - 50.00 % 08/28/2024 5:20 PM [facility] DEPARTMENT OF PATHOLOGY MCV 89.6 80.0 - 100.0 fL 08/28/2024 5:20 PM [facility] DEPARTMENT OF PATHOLOGY MCH 30.1 27.0 - 33.0 pg 08/28/2024 5:20 PM [facility] DEPARTMENT OF PATHOLOGY MCHC 33.6 31.0 - 36.0 g/dL 08/28/2024 5:20 PM [facility] DEPARTMENT OF PATHOLOGY RDW-CV 13.1 11.0 - 15.0 % 08/28/2024 5:20 PM [facility] DEPARTMENT OF PATHOLOGY Platelets 266 150 - 420 x1000/??L 08/28/2024 5:20 PM [facility] DEPARTMENT OF PATHOLOGY MPV 8.7 8.0 - 12.0 fL 08/28/2024 5:20 PM [facility] DEPARTMENT OF PATHOLOGY Neutrophils 58.0 39.0 - 72.0 % 08/28/2024 5:20 PM [facility] DEPARTMENT OF PATHOLOGY Lymphocytes 31.5 17.0 - 50.0 % 08/28/2024 5:20 PM [facility] DEPARTMENT OF PATHOLOGY Monocytes 7.8 4.0 - 12.0 % 08/28/2024 5:20 PM [facility] DEPARTMENT OF PATHOLOGY Eosinophils 1.8 0.0 - 5.0 % 08/28/2024 5:20 PM [facility] DEPARTMENT OF PATHOLOGY Basophil 0.6 0.0 - 1.4 % 08/28/2024 5:20 PM [facility] DEPARTMENT OF PATHOLOGY Immature Granulocytes 0.3 0.0 - 1.0 % 08/28/2024 5:20 PM [facility] DEPARTMENT OF PATHOLOGY nRBC 0.0 0.0 - 1.0 % 08/28/2024 5:20 PM [facility] DEPARTMENT OF PATHOLOGY Absolute Lymphocyte Count 3.92(H) 0.60 - 3.70 x 1000/??L 08/28/2024 5:20 PM [facility] DEPARTMENT OF PATHOLOGY Monocyte Absolute Count 0.97 0.00 - 1.00 x 1000/??L 08/28/2024 5:20 PM [facility] DEPARTMENT OF PATHOLOGY Eosinophil Absolute Count 0.23 0.00 - 1.00 x 1000/??L 08/28/2024 5:20 PM [facility] DEPARTMENT OF PATHOLOGY Basophil Absolute Count 0.07 0.00 - 1.00 x 1000/??L 08/28/2024 5:20 PM [facility] DEPARTMENT OF PATHOLOGY Absolute Immature Granulocyte Count 0.04 0.00 - 0.30 x 1000/??L 08/28/2024 5:20 PM [facility] DEPARTMENT OF PATHOLOGY Absolute nRBC 0.00 0.00 - 1.00 x 1000/??L 08/28/2024 5:20 PM [facility] DEPARTMENT OF PATHOLOGY ANC (Abs Neutrophil Count) 7.21 2.00 - 7.60 x 1000/??L 08/28/2024 5:20 PM [facility] DEPARTMENT OF PATHOLOGY Blood Venipuncture / Unknown 08/28/2024 5:06 PM EST 08/28/2024 5:11 PM EST Soto Noe MD LAB BLOOD ORDERABLES Final R esult [facility] DEPARTMENT OF PATHOLOGY [address] [place] [address] * Lipase (08/28/2024 5:06 PM EST) Lipase 18 13 - 75 U/L 08/28/2024 5:30 PM EST [facility] DEPARTMENT OF PATHOLOGY Comment:[employer] overr samantha Blood Venipuncture / Unknown 08/28/2024 5:06 PM EST 08/28/2024 5:11 PM EST us Soto Noe MD LAB BLOOD ORDERABLES Final R esult Performing Organization Address [facility]/State/ZIP Co de Phone Number [facility] DEPARTMENT OF PATHOLOGY [address] [place] [address] * CARDIAC EKG RESULT SCAN (08/28/2024 12:00 AM EST) us Provider Not In System CV CARDIAC REPORT (CVR) F inal Result from Last 3 Months Insurance MEDICARE [facility] MEDICARE [facility] MEDICARE [facility] Care Teams Worm Sorter Relationship Specialty Start Date End Date Jeannette Weinstein MD [address] [place] [address] PCP - General Internal Medicine 08/28/24
== END 2024-11-21 10:32 | disposition home or self-care (01) ==
PROVIDERS: PCP Physician Assistant Medical; Visit Provider Internal Medicine
DX: M76.01 Gluteal tendinitis, right hip (principal)
CPT/HCPCS: 20551

== ENCOUNTER → 2024-11-21 10:09 | Outpatient (BNVA) | payer MEDICARE, SELFPAY | PROVIDERS: PCP Physician Assistant Medical; Visit Provider Internal Medicine | DX: M25.551 Pain in right hip (principal) | CPT/HCPCS: 20551; J2795 ==